=== PATIENT | female | born 1955 | race Caucasian/White ===

== ENCOUNTER 2020-10-02 22:58 | Inpatient (IN) | payer OTHER ==
[~2020-10-02] VITALS: Ht 157.5 cm; Wt 80.0 kg
[~2020-10-02 22:58] MED LIST: ASPI81TA45 PO; ATOR40TA78 PO; CLOP75TA PO; FOLI1TAB32 PO; LISI-606 PO; MULT-482 PO; SULF500T47 PO
[2020-10-02] MEDS ORDERED: SODIUM CHLORIDE FLUSH 10ML SYR IVF ONE (23:30)
[2020-10-02] MEDS ORDERED: DILTIAZEM 5 MG/ML, 5ML ONE (23:30)
[2020-10-02] MEDS ORDERED: DILTIAZEM 5 MG/ML, 5ML IVPush ONE (23:30)
--- NOTE | 2020-10-02 23:42 | NUR ---
PT C/O OF HEART PALPITATIONS AROUND 2200 TONIGHT. PT C/O OF THROAT AND CHIN HURTING WELL. HX OF STROKE 2 MONTHS AGO. PT HAS NO STROKE STYMTPMOS. NO WEAKNESS ON EITHER SIDE AND HEMIPLAGIA NOTED. PT DENIES BEING ON BLOOD THINNERS. CRASH CART AND MD AT BEDSIDE. PADS APPLIED. AMBU BAG READY ER MD AT BEDSIDE.
[2020-10-02] MEDS ORDERED: COLITIS MEDICATION (23:48)
[2020-10-02 23:50] LABS: BASOPHILS % (AUTO) 1 % (0-1); EOSINOPHILS % (AUTO) 7 % (1-7); LYMPHOCYTES % (AUTO) 37 % (22-44); MEAN CORPUSCULAR HEMOGLOBIN 31.4 pg (27.0-34.8); MEAN CORPUSCULAR HGB CONC 33.7 g/dL (32.4-35.8); MEAN PLATELET VOLUME 10.2 fL (7.4-10.4); MONOCYTES % (AUTO) 10 % (2-9); NEUTROPHILS % (AUTO) 45 % (42-75); PLATELET COUNT 262 x10^3/uL (130-400); RED BLOOD COUNT 4.26 x10^6/uL (3.82-5.3); RED CELL DISTRIBUTION WIDTH 13.8 % (9.6-15.2)
[2020-10-03] MEDS ORDERED: DILTIAZEM 5 MG/ML, 5ML IVPush ONE
[2020-10-03 00:01] LABS: ALANINE AMINOTRANSFERASE 51 U/L (12-78); ALBUMIN 3.4 g/dL (3.4-5.0); ANION GAP 6 mmol/L (5-15); CALCIUM 9.2 mg/dL (8.5-10.1); CHLORIDE 107 mmol/L (98-107); CREATININE 0.96 mg/dL (0.55-1.02)
[2020-10-03 00:05] LABS: ALKALINE PHOSPHATASE 117 U/L (45-117); BILIRUBIN,TOTAL 0.3 mg/dL (0.2-1.0); TOTAL PROTEIN 7.6 g/dL (6.4-8.2); TROPONIN I < 0.015 ng/mL (0.000-0.045)
--- NOTE | 2020-10-03 00:20 | NUR ---
PT URINATED IN TOILET. TRANFER TOLERATED WELL.
--- NOTE | 2020-10-03 00:25 | NUR ---
PT RESTING IN BED. ATTACHED TO ALL CONTINOUS MONITORS. DAUGHTER AT BEDSIDE. PT STATES SHE IS FEELING BETTER. WCTM. SAFETY PRECAUTIONS STILL AT BEDSIDE
[2020-10-03] MEDS ORDERED: DILTIAZEM 125 MG in SODIUM CHLORIDE 0.9% 100 ML IV SCH (00:30)
[2020-10-03 00:47] LABS: FREE T4 (FREE THYROXINE) 0.92 ng/dL (0.76-1.46)
--- NOTE | 2020-10-03 00:59 | NUR ---
PT RESTING ON GURNEY RESP EVEN AND UNLABORED NADN, NO NEEDS AT THIS TIME.
--- NOTE | 2020-10-03 01:28 | NUR ---
PT RESTING IN BED. PT RHYTHM CONVERTED INTO NSR. NADN. VSS. WCTM
[2020-10-03] MEDS ORDERED: LABETALOL 5MG/ML, 20ML IVPush PRN (01:30)
[2020-10-03] MEDS ORDERED: POLYETHYLENE GLYCOL 17 GM PACKET PO PRN (01:30)
[2020-10-03] MEDS ORDERED: ACETAMINOPHEN 500 MG TABLET PO PRN (01:30)
[2020-10-03] MEDS ORDERED: morphine SULFATE 10 MG/ML, 1ML IVPush PRN (01:30)
[2020-10-03] MEDS ORDERED: MELATONIN 5 MG TABLET PO PRN (01:30)
[2020-10-03] MEDS ORDERED: GUAIFENESIN/DM 200-20MG, 10ML UDC PO PRN (01:30)
[2020-10-03] MEDS ORDERED: MAGNESIUM SULFATE PMX 2GM/50ML 50 ML IV ONE (01:30)
[2020-10-03] MEDS ORDERED: ONDANSETRON 2MG/ML, 2ML IVPush PRN (01:30)
[2020-10-03] MEDS ORDERED: POTASSIUM CHLORIDE 20 MEQ TAB.ER.PRT PO ONE (01:30)
[2020-10-03] MEDS ORDERED: APIXABAN 5 MG TABLET PO ONE (01:30)
--- NOTE | 2020-10-03 01:50 | NUR ---
gave report to facundo alvarado
[2020-10-03 02:11] VITALS: BP 121/84
[2020-10-03 02:17] LABS: TROPONIN I < 0.015 ng/mL (0.000-0.045)
[2020-10-03] MEDS: PROPRANOLOL 10 MG TABLET PO SCH ×2 (02:50→08:22)
[2020-10-03] MEDS: ASPIRIN 81 MG TABLET EC PO SCH (06:02)
[2020-10-03 07:52] VITALS: BP 124/74
[2020-10-03 08:07] LABS: TROPONIN I 0.028 ng/mL (0.000-0.045)
[2020-10-03] MEDS: MULTIVITAMIN 1 TABLET PO SCH (08:22)
[2020-10-03] MEDS: FOLIC ACID 1 MG TABLET PO SCH (08:22)
[2020-10-03] MEDS: LISINOPRIL 5 MG TABLET PO SCH (08:22)
[2020-10-03] MEDS: APIXABAN 5 MG TABLET PO SCH ×2 (08:23→21:26)
[2020-10-03 12:38] VITALS: BP 167/80
[2020-10-03 13:16] LABS: TROPONIN I < 0.015 ng/mL (0.000-0.045)
[2020-10-03 17:15] VITALS: BP 117/76
[2020-10-03] MEDS ORDERED: METOPROLOL TARTRATE 25 MG TAB PO SCH (18:00)
[2020-10-03 19:22] VITALS: BP 101/63
[2020-10-03] MEDS ORDERED: ATORVASTATIN 40 MG TABLET PO SCH (21:00)
[2020-10-04 02:33] VITALS: BP 118/75
[2020-10-04 05:26] LABS: BASOPHILS % (AUTO) 1 % (0-1); EOSINOPHILS % (AUTO) 8 % (1-7); LYMPHOCYTES % (AUTO) 38 % (22-44); MEAN CORPUSCULAR HGB CONC 34.1 g/dL (32.4-35.8); MEAN PLATELET VOLUME 10.6 fL (7.4-10.4); MONOCYTES % (AUTO) 9 % (2-9); NEUTROPHILS % (AUTO) 44 % (42-75); PLATELET COUNT 230 x10^3/uL (130-400); RED BLOOD COUNT 3.86 x10^6/uL (3.82-5.3); RED CELL DISTRIBUTION WIDTH 13.7 % (9.6-15.2)
[2020-10-04 05:27] LABS: ANION GAP 4 mmol/L (5-15); CALCIUM 9.1 mg/dL (8.5-10.1); CHLORIDE 109 mmol/L (98-107); CREATININE 0.86 mg/dL (0.55-1.02)
[2020-10-04] MEDS: ASPIRIN 81 MG TABLET EC PO SCH (05:34)
[2020-10-04] MEDS ORDERED: APIX5TAB PO (07:47)
[2020-10-04] MEDS ORDERED: METO25TA35 PO (07:47)
[2020-10-04 07:57] VITALS: BP 145/79
[2020-10-04] MEDS: MULTIVITAMIN 1 TABLET PO SCH (07:59)
[2020-10-04] MEDS: APIXABAN 5 MG TABLET PO SCH (07:59)
[2020-10-04] MEDS: LISINOPRIL 5 MG TABLET PO SCH (07:59)
[2020-10-04] MEDS: FOLIC ACID 1 MG TABLET PO SCH (07:59)
[2020-10-04] MEDS ORDERED: METOPROLOL TARTRATE 25 MG TAB PO SCH (18:00)
== END 2020-10-04 11:15 | disposition home health service (06) | DRG 309 ==
LOC: ED 10-03 01:31 → EDIP 10-03 01:37 → 5SO 10-03 02:01
PROVIDERS: ADMIT Internal Medicine; ATTEND Family Medicine
PROC: 5A2204Z Restoration of Cardiac Rhythm, Single (ICD-10-PCS; principal; 2020-10-03)
DX: I48.0 Paroxysmal atrial fibrillation (principal); K51.90 Ulcerative colitis, unspecified, without complications; E05.90 Thyrotoxicosis, unspecified without thyrotoxic crisis or storm; E66.01 Morbid (severe) obesity due to excess calories; I10 Essential (primary) hypertension; Z68.32 Body mass index [BMI] 32.0-32.9, adult; Z79.01 Long term (current) use of anticoagulants; Z86.73 Personal history of transient ischemic attack (TIA), and cerebral infarction without residual deficits; Z71.3 Dietary counseling and surveillance
CPT/HCPCS: 36415; 71045; 80048; 80053; 83735; 84439; 84443; 84484; 85025; 93005; 96374; 99291; G0378; J3475